=== PATIENT | male | born 1995 | race African-American/Black ===

== ENCOUNTER 2018-07-01 14:51 | Emergency (ER) | payer OTHER ==
[2018-07-01] MEDS ORDERED: IBUPROFEN SUSP 100 MG/5 ML ORAL SYRINGE PO ONE (14:58)
--- NOTE | 2018-07-01 17:16 | ER Document Report ---
HPI - HPI Patient complains to provider of: sore throat, difficulty swallowing Time Seen by Provider: 07/01/18 17:25 Onset: Other - 2 days Onset/Duration: Persistent Quality of pain: Achy Severity: Severe Pain Level: 5 Context: Patient presents emergency department with complaints of sore throat for the past 2 days. He reports fever body aches. Reports trouble swallowing hurts when he swallows. Went to urgent care and they sent him here. Is unknown exposure to strep but he works at [employer]. Reports he tried to swallow a lot of water yesterday and vomited. Patient is drinking water as we talk. Associated Symptoms: Fever, Sore throat Exacerbated by: Food Relieved by: Denies Similar symptoms previously: No Recently seen / treated by doctor: Yes Past Medical History - General Information source: Patient, Parent - Social History Smoking Status: Unknown if Ever Smoked Cigarette use (# per day): No Frequency of alcohol use: None Drug Abuse: None Occupation: [employer] Lives with: Family Family History: Reviewed & Not Pertinent Patient has suicidal ideation: No Patient has homicidal ideation: No - Medical History Medical History: Negative Surgical Hx: Negative Vertical Provider Document - CONSTITUTIONAL Agree With Documented VS: Yes Exam Limitations: No Limitations General Appearance: WD/WN, No Apparent Distress - INFECTION CONTROL TRAVEL OUTSIDE OF THE [place] IN LAST 30 DAYS: No - HEENT HEENT: Atraumatic, Normocephalic, Pharyngeal Exudate, Pharyngeal Erythema. negative: Tympanic Membrane Red, Tympanic Membrane Bulging Notes: tonsillar hypertrophy, good airway, mother reports muffled voice, pt reports swallowing okay - NECK Neck: Normal Inspection, Supple - RESPIRATORY Respiratory: Breath Sounds Normal, No Respiratory Distress - CARDIOVASCULAR Cardiovascular: Regular Rate, Regular Rhythm - MUSCULOSKELETAL/EXTREMETIES Musculoskeletal/Extremeties: RUPINDER LEVI - NEURO Level of Consciousness: Awake, Alert, Appropriate Motor/Sensory: No Motor Deficit - DERM Integumentary: Warm, Dry Course - Re-evaluation Re-evalutation: 07/01/18 17:[address] to examine throat narrowing and abscess, temp 98.4 now. patient drinking water without problem. 07/01/18 18:53 Patient and mother were instructed on negative CT. There were instructed on clindamycin signs of allergic reaction. They were also instructed on Decadron. They were instructed on throat culture pending and they may be contacted to switch antibiotics. They were also instructed to return to the emergency d epartment immediately for worsening symptoms trouble swallowing concerns. Dictation of this chart was performed using voice recognition software; therefore, there may be some unintended grammatical errors. - Vital Signs Vital signs: Temp Pulse Resp BP Pulse Ox 100 F 98 17 131/73 H 99 07/01/18 16:30 07/01/18 14:56 07/01/18 14:56 07/01/18 14:56 07/01/18 14:56 - Diagnostic Test Radiology reviewed: Image reviewed, Reports reviewed - No significant finding with CT no abscess Discharge - Discharge Clinical Impression: Sore throat, Tonsillar exudate Condition: Stable Disposition: HOME, SELF-CARE Instructions: Acetaminophen, Clindamycin ([facility]), Fever ([facility]), Sore Throat ([facility]) Additional Instructions: *You have been evaluated for a sore throat, tonsillar exudate *The CT did not show an abscess *Take medication as prescribed *Warm salt water gargles and throat lozenges for comfort *Change toothbrush after two days of antibiotics *Do not let anyone drink/eat after you *Good hand washing *Follow-up with a primary care provider within one week for recheck *Return to ED for worsening condition change, needs, unable to swallow, concerns Prescriptions: Clindamycin HCl 300 mg PO TID #15 capsule Forms: Elevated Blood Pressure, Return to Work Referrals: MARTY THRASHER MD [Primary Care Provider] - Follow up tomorrow
[2018-07-01] MEDS ORDERED: DEXAMETHASONE SOD PHOS INJ 10 MG/1 ML VIAL IM ONE (17:24)
--- NOTE | 2018-07-01 18:25 | RADIOLOGY REPORT (SQ) ---
EXAM DESCRIPTION: CT SOFT TISSUE NECK WITH COMPLETED DATE/TIME: 07/01/2018 6:08 pm REASON FOR STUDY: swelling, difficulty swallowing COMPARISON: None. TECHNIQUE: Post IV contrasted scanning from skull base through lung apices with review of bone, soft tissue and lung windows. Reconstructed coronal and sagittal MPR images reviewed. All images stored on PACS. All CT scanners at this facility use dose modulation, iterative reconstruction, and/or weight based d osing when appropriate to reduce radiation dose to as low as reasonably achievable (ALARA). [facility]: Dose Right [facility]: CareDose [facility]: Dose Right [facility]: Teradose 4D [facility]: MVERSE CONTRAST TYPE AND DOSE: contrast/concentration: Isovue 350.00 mg/ml; Total Contrast Delivered: 75.0 ml; Total Saline Delivered: 55.0 ml RENAL FUNCTION: None required. The patient is less than 50 years old. RADIATION DOSE: CT Rad equipment meets quality standard of care and radiation dose reduction techniq ues were employed. CTDIvol: 14.0 mGy. DLP: 463 mGy-cm. . LIMITATIONS: None. FINDINGS: SKULL BASE: Intact. MAJOR SALIVARY GLANDS: No solid or cystic masses. No inflammatory changes. LYMPHADENOPATHY: No adenopathy. MUCOSAL MASSES OR ASYMMETRY: No mucosal masses or asymmetry. LARYNX/CORDS: No abnormal findings. VASCULAR STRUCTURES: The major vessels are patent. LUNG APICES: Clear. BONES: Intact. THYROID: Normal size. No masses. PARANASAL SINUSES: Clear. OTHER: No other significant finding. IMPRESSION: NO SIGNIFICANT FINDING IN THE SOFT TISSUES OF THE NECK. TECHNICAL DOCUMENTATION: JOB ID: [id number] Quality ID # [id number]: Final reports with documentation of one or more dose reduction techniques (e.g., Au tomated exposure control, adjustment of the mA and/or kV according to patient size, use of iterative reconstruction technique) 2010 [employer]- All Rights Reserved Reading location - IP/workstation name: [email or web address]
[2018-07-01] MEDS ORDERED: CLINDAMYCIN HCL 150 MG CAPSULE PO ONE (18:35)
[2018-07-01 19:18] VITALS: BP 129/72
== END 2018-07-01 19:22 | disposition home or self-care (01) ==
LOC: ER 14:51
DX: J02.9 Acute pharyngitis, unspecified (principal); R50.9 Fever, unspecified
CPT/HCPCS: 96372; 99284; 87070; 87880; 70491; J1100